=== PATIENT | female | born 1960 | race Caucasian/White ===

== ENCOUNTER 2024-09-16 19:18 | Emergency (ER) | payer BC, SELFPAY ==
[2024-09-16 19:39] VITALS: BP 134/58; PULSE 79; RESP 18; TEMP 36.9; O2SAT 98; BMI 38.1
--- NOTE | 2024-09-16 20:37 | ED_ITS ---
HPI - General Adult General Date Seen: 09/16/24 Chief complaint: Extremity Pain/Injury, Lower Stated complaint: Left severe pain, unable to without weight Time Seen by Provider: 09/16/24 19:46 Source: patient Mode of arrival: wheelchair Limitations: no limitations History of Present Illness HPI narrative: Patient is a 64-year-old female presenting to the emergency department for left knee pain. She states she has been doing with this enough knee issue for a long time and is bone on bone requiring knee surgery but can not get it done till November due to her recent cortisone injections. She states she has had multiple injections to her a new left knee over the past 2 weeks with most recent being about a week ago. States she has been seeing [facility] and at 1 point they thought there might be a foreign body floating in her knee but she needs an MRI for better evaluation of it. X-rays were done and are inconclusive. She was told that there was nothing more they can do to night and if the pain persists she will need to go to the emergency department. She states she cannot tolerate the pain right now as the Percocet she gets only helps her for a few hours and she wakes up. She can not extend her knee all the way or flex it all the way due to the pain and currently do small movements. Cannot put any weight on the knee right now due to the pain. She states in the injection sites there was some warmth but otherwise no warmth or swelling noted anywhere else. Pain she states is mostly in the posterior aspect of her leg. Denies any calf pain. No history of blood clots. Has not noticed increased swelling to the left leg. No other concerns noted Review of Systems Status of ROS: Reports: 10 or more systems reviewed and unremarkable except as noted in History and below Exam Narrative: Exam Narrative: Const: Well-nourished, Well-developed, in mild distress Eyes: PERRL, no conjunctival injection, and symmetrical lids HENT: Atraumatic external nose and ears. Moist mucous membranes. MSK:Extremities w/o deformity, decreased active and passive range of motion to left knee. No tenderness to the joint line. No calf tenderness. No obvious swelling of lower extremity. No clear swelling to the left knee. No warmth felt Skin: Warm, Dry. No rashes or lesions. Neuro: Normal Muscle tone, No focal neurological deficits. Psych: Awake, Alert, & Oriented x3. Appropriate mood and affect. Const: Vital Signs, click to edit/add: Vital Signs - 24 hr 09/16/24 19:39 Temperature 98.4 F Pulse Rate [Right Pulse Oximeter] 79 Respiratory Rate 18 Blood Pressure [Ri ght Upper Arm] 134/58 L Pulse Oximetry 98 Oxygen Delivery Me thod Room Air Course Vital Signs Vital signs: Initial Vital Signs Temperature 98.4 F 09/16/24 19:39 Temperature Source Temporal Artery Scan 09/16/24 19:39 Pulse Rate 79 09/16/24 19:39 Pulse Rhythm Regular 09/16/24 19:39 Pulse Strength 3+ Normal 09/16/24 19:39 Respiratory Rate 18 09/16/24 19:39 Blood Pressure 134/58 L 09/16/24 19:39 Blood Pressure Mean 83 09/16/24 19:39 Blood Pressure Position Sitting 09/16/24 19:39 Pulse Oximetry 98 09/16/24 19:39 Oxygen Delivery Method Room Air 09/16/24 19:39 Vital Signs Temperature 98.4 F 09/16/24 19:39 Pulse Rate 79 09/16/24 19:39 Respiratory Rate 18 09/16/24 19:39 Blood Pressure 134/58 L 09/16/24 19:39 Pulse Oximetry 98 09/16/24 19:39 Oxygen Delivery Method Room Air 09/16/24 19:39 Temperature 98.4 F 09/16/24 19:39 Pulse Rate 79 09/16/24 19:39 Respiratory Rate 18 09/16/24 19:39 Blood Pressure 134/58 L 09/16/24 19:39 Pulse Oximetry 98 09/16/24 19:39 Oxygen Delivery Method Room Air 09/16/24 19:39 Medical Decision Making MDM Narrative Medical decision making narrative: Patient is 64 year female presenting for left knee pain. She has severe osteoarthritis and needs a knee replacement. She is here for pain control. She has not tried Toradol yet. Will give her an injection of morphine and Toradol. The left knee there were some areas of warmth she states before she put on the ice PACs. Right now everything feels cool to the touch. There is no diffuse swelling to the knee and no diffuse erythema or warmth noted on my exam. I did consider possible septic arthritis or gout but seems rather unlikely that this is most likely osteoarthritis. I spoke to her about possibly doing lab work to check for signs of septic arthritis but with shared decision making was decided not to. This seems reasonable as again this is not appear like septic arthritis and looks most likely to be related to her osteoarthritis. I was able to do small movements of the knee with minimal pain. Would expect a septic arthritis to have more severe pain even with the small movements. Will try giving her Toradol to help with pain control. She has already had multiple steroid injections I will not give her any further steroids. Toradol provided the instymeds. She feels comfortable with discharge. She will follow up with her provider in the morning. Discharge Plan Discharge Clinical Impression: Osteoarthritis Qualifiers: Osteoarthritis location: knee Osteoarthritis type: unspecified Laterality: left Qualified Code(s): M17.12 - Unilateral primary osteoarthritis, left knee Patient Disposition: Home, Self-Care Condition: Stable Instructions: Osteoarthritis (DC) Additional Instructions: Take her Percocet and Toradol scheduled for pain. I recommend scheduling it to stay ahead of the pain. While taking Toradol do not take other NSAIDs such as ibuprofen or naproxen as this increases your chances of a GI bleed and kidney issues. Return to emergency department for new or worsening symptoms. Return to emergency department if he developed diffuse swelling of her lower extremity, worsening calf pain, diffuse swelling and redness of your knee, fevers or any other concerning symptoms. Follow-up with your orthopedic provider tomorrow. Stand Alone Forms: [facility] Info Instructions
[2024-09-16] MEDS: MORPHINE 4 MG/ML INJ IM (20:50)
--- OUTSIDE RECORDS SUMMARY | 2024-09-16 20:53 | XMS_ITS | Clinical Summary ---
Author Organization [facility] Address [address] [place] [address] Care Team Providers Care National Account Executive Name Role Phone Unavailable Primary Care Provider Unavailabl e Source Comments You are receiving this document as you are listed as the primary care provider,follow-up provider, or the patient has been referred to you for consultation.This is in compliance with the Medicare and[facility] Incentive Program,which states Providers who transition their patient to another setting of careor provider of care or refers their patient to another provider of care shouldprovide summary care record for each transition of care or referral. [facility] Allergies No known active allergies Medications valsartan (DIOVAN) 160 MG tablet Take 1 Tablet (160 mg) by mouth daily. 4 Active WEGOVY 2.4 MG/0.75ML pen injection Inject 0.75 mL (2.4 mg) subcutaneously once every week. 5 Active chlorthalidone (HYGROTON) 25 MG tablet Take 1 Tablet (25 mg) by mouth daily. 5 Active Social History Tobacco Use Types Packs/Day Years Used Date Smoking Tobacco: Never Smokeless Tobacco: Never Tobacco Cessation:Counseling Given: Not Answered Comments No Sex and Gender Information Value Date Recorded Sex Assigned at Not on file Legal Sex Female 5:26 PM CDT Gender Identity Not on file Sexual Orientation Not on file Last Filed Vital Signs Vital Sign Reading Time Taken Comments Blood Pressure 144/81 05/22/2024 5:40 PM CDT Pulse 91 05/22/2024 5:40 PM CDT Temperature 37.5 C (99.5 F) 05/22/2024 5:40 PM CDT Respiratory Rate 16 05/22/2024 5:40 PM CDT Oxygen Saturation 96% 05/22/2024 5:40 PM CDT Inhaled Oxygen Concentration - - Weight - - Height - - Body Mass Index - - Plan of Treatment Health Maintenance Due Date Last Done Comments Cervical Cancer Screening Due 1961 Colon Cancer Screening Plan Due 1961 Hep C Screening (Preventive Services) 1961 Mammogram 1961 HIV Screening (Preventive Services) 1977 Adult Preventive Visit 1979 Cholesterol 2006 Pneumococcal Vaccine 50+ Yrs (1 of 1 - PCV) 2011 Zoster/Shingles Vaccine (1 of 2) 2011 COVID-19 Vaccine (4 - 2023- season) 2023 01/19/2021, 05/15/2020, 04/16/2020 Influenza Vaccine (#1) 2024 , 11/14/2018, 12/14/2017, Additional history exists DTaP/Tdap/Td Vaccine (3 - Tdap) 07/21/2032 07/21/2022, 03/18/2009 RSV Vaccine (1 - 1-dose 75+ series) 2036 HepA Vaccine Aged Out No longer eligi ble based on patient's age to complete this topic HepB Vaccine Aged Out No longer eligi ble based on patient's age to complete this topic Hib Vaccine Aged Out No longer eligi ble based on patient's age to complete this topic IPV (Polio) Vaccine Aged Out No longe r eligible based on patient's age to complete this topic MCV4 Vaccine Aged Out No longer eligi ble based on patient's age to complete this topic Meningococcal B Vaccine Aged Out No l onger eligible based on patient's age to complete this topic Insurance [facility]
== END 2024-09-16 21:09 | disposition home or self-care (01) ==
LOC: ED 20:51
PROVIDERS: Emergency Provider Student in an Organized Health Care Education/Training Program
DX: M17.12 Unilateral primary osteoarthritis, left knee (principal)
CPT/HCPCS: 96372; 99283; J1885; J2270